=== PATIENT | female | born 1980 | race Hispanic/Latino ===

== ENCOUNTER 2024-11-24 08:58 | Emergency (ER) | payer OTHER, SELFPAY ==
[2024-11-24 09:10] VITALS: BP 124/78; PULSE 80; RESP 18; TEMP 36.3; O2SAT 99
--- NOTE | 2024-11-24 09:21 | ED_ITS ---
HPI - Skin/Abscess/Foreign Bdy General Chief complaint: Wound/Laceration Stated complaint: Insect Bite Time Seen by Provider: 11/24/24 09:21 Source: patient Mode of arrival: ambulatory Limitations: no limitations History of Present Illness HPI narrative: 34 yo F presents with c/o insect bite to R arm for 5 days. Woke up Wednesday morning with itchin to R upper arm. Thought is was a mosquito bite. Redness, swelling progressively worse, painful past two days. Afebrile. Concerned for spider bite. All systems reviewed and negative except as noted above. Related Data Allergies Allergy/AdvReac Type Severity Reaction Status Date / Time No Known Allergies Allergy Verified 11/24/24 09:30 PMFSH Comments At time of signature, agree with nursing past medical, surgical, social and family history. There is no relevant family history pertinent to the presenting complaint. Exam Narrative: GENERAL: This is a well-nourished, well-developed patient, in no apparent distress. HEAD: normocephalic, atraumatic. EYES: PERRL. Sclera clear/white. Vision is grossly intact. EARS: External ears normal NOSE: External nose normal NECK: Neck supple, non-tender without lymphadenopathy, masses or thyromegaly. CARDIOVASCULAR: Regular rate and rhythm without murmurs, gallops, or rubs. RESPIRATORY: Clear to auscultation. Breath sounds equal bilaterally. No wheezes, rales, or rhonchi. SKIN: warm, Dry, intact with no suspicious lesions or rash, good texture and turgor. erythema, swelling 11 x 7cm. induration 4cm. no fluctuance concerning for abscess. no drainage. Warm and tender to touch. NEURO: awake, alert, and oriented to person, place and time. There were no obvious focal neurologic abnormalities. EXTREMITIES: No joint tenderness, effusion, or edema noted. Course Course Level of Care: Express Care Visit Vital Signs Vital signs: Vital Signs Temperature 36.3 C L 11/24/24 09:10 Pulse Rate 80 11/24/24 09:10 Respiratory Rate 18 11/24/24 09:10 Blood Pressure 124/78 11/24/24 09:10 Pulse Oximetry 99 11/24/24 09:10 Oxygen Delivery Room Air 11/24/24 09:10 Temperature 36.3 C L 11/24/24 09:10 Pulse Rate 80 11/24/24 09:10 Respiratory Rate 18 11/24/24 09:10 Blood Pressure 124/78 11/24/24 09:10 Pulse Oximetry 99 11/24/24 09:10 Oxygen Delivery Room Air 11/24/24 09:10 reviewed MDM - Skin/Abscess/Foreign Bdy MDM Narrative Medical decision making narrative: treating infected insect bite with doxycycline. Recommend follow up with PCP as needed. Will go to ER for any worsening of symptoms. Pt is well appearing, nontoxic. ROM and distal NV intact. Differential Diagnosis Differential diagnosis: Likely insect bites Discharge Plan Discharge Clinical Impression: Infected insect bite of right arm Qualifiers: Encounter type: initial encounter Qualified Code(s): S40.861A - Insect bite (nonvenomous) of right upper arm, initial encounter Patient Disposition: Home Condition: Stable Instructions: Antibiotic Form, Insect Bite or Sting (ED) Additional Instructions: [place] los medicamentos seg?n lo prescrito. [place] ibuprofeno o Tylenol cada 6-8 horas seg?n sea necesario para el dolor. Aplique crema con esteroides con moderaci?n en la nimesh afectada seg?n sea necesario para la inflamaci?n y la picaz?n. Consulte con bruner m?dico de cabecera si no mejora. Patient Language: Amharic Prescriptions: New doxycycline hyclate 100 mg capsule 100 mg PO BID 7 Days Qty: 14 0RF triamcinolone acetonide 0.1 % cream 1 applic topical BID PRN (Reason: insect bite) Qty: 30 0RF methylprednisolone [Medrol (Reggie)] 4 mg tablets,dose pack See Rx Instructions PO .COMPLEX Qty: 21 0RF Rx Instructions: orally per package directions Follow-up/Referrals: Cassie,GURINDER Calero [Primary Care Provider] Time of Disposition: 09:37
== END 2024-11-24 10:01 | disposition home or self-care (01) ==
PROVIDERS: Emergency Provider Nurse Practitioner Family; PCP Registered Nurse
DX: S40.861A Insect bite (nonvenomous) of right upper arm, initial encounter (principal); L08.9 Local infection of the skin and subcutaneous tissue, unspecified; W57.XXXA Bitten or stung by nonvenomous insect and other nonvenomous arthropods, initial encounter
CPT/HCPCS: 99203; G0463